=== PATIENT | male | born 1960 | race Caucasian/White ===

== ENCOUNTER → 2019-01-08 | Outpatient (CLI) | payer OTHER ==
[2019-01-08 08:44] LABS: HEMATOCRIT 45.2 % (37.9-51.0); HEMOGLOBIN 15.4 g/dL (13.5-17.0); MEAN CORPUSCULAR HEMOGLOBIN 30.1 pg (27.0-33.4); MEAN CORPUSCULAR HGB CONC 33.9 g/dL (32.0-36.0); MEAN CORPUSCULAR VOLUME 89 fl (80-97); PLATELET COUNT 179 10^3/uL (150-450); RED CELL DISTRIBUTION WIDTH 13.6 % (11.5-14.0); WHITE BLOOD COUNT 9.2 10^3/uL (4.0-10.5)
[2019-01-08 09:18] LABS: ALANINE AMINOTRANSFERASE 25 U/L (21-72); ALBUMIN 3.8 g/dL (3.5-5.0); ALKALINE PHOSPHATASE 78 U/L (38-126); ANION GAP 8 (5-19); ASPARTATE AMINO TRANSFERASE 14 U/L (17-59); BILIRUBIN,DIRECT 0.3 mg/dL (0.0-0.4); BILIRUBIN,TOTAL 0.4 mg/dL (0.2-1.3); BLOOD UREA NITROGEN 21 mg/dL (7-20); CALCIUM 9.6 mg/dL (8.4-10.2); CARBON DIOXIDE 31 mmol/L (22-30); CHLORIDE 102 mmol/L (98-107); CHOLESTEROL 182.32 mg/dL (0-200); GLUCOSE 163 mg/dL (75-110); POTASSIUM 4.9 mmol/L (3.6-5.0); SODIUM 141.3 mmol/L (137-145); TOTAL PROTEIN 6.8 g/dL (6.3-8.2); TRIGLYCERIDES 79 mg/dL (<150)
[2019-01-08 09:30] LABS: DIRECT LDL 118 mg/dL (<100)
== END ==
LOC: OD 07:09
PROVIDERS: ATTEND Physician Assistant
DX: R07.9 Chest pain, unspecified (principal); E78.5 Hyperlipidemia, unspecified; E11.9 Type 2 diabetes mellitus without complications
CPT/HCPCS: 36415; 80048; 80061; 80076; 83735; 84443; 85027

== ENCOUNTER → 2019-01-17 | Outpatient (CLI) | payer OTHER ==
[2019-01-17 13:32] LABS: INTERNATIONAL RATION (INR) 0.94; PARTIAL THROMBOPLASTIN TIME 26.4 SEC (23.5-35.8)
[2019-01-17 13:34] LABS: HEMATOCRIT 47.5 % (37.9-51.0); HEMOGLOBIN 16.1 g/dL (13.5-17.0); MEAN CORPUSCULAR VOLUME 88 fl (80-97); PLATELET COUNT 186 10^3/uL (150-450); RED BLOOD COUNT 5.37 10^6/uL (4.35-5.55); RED CELL DISTRIBUTION WIDTH 13.6 % (11.5-14.0); WHITE BLOOD COUNT 10.5 10^3/uL (4.0-10.5)
[2019-01-17 13:47] LABS: ANION GAP 9 (5-19); BLOOD UREA NITROGEN 20 mg/dL (7-20); CALCIUM 9.9 mg/dL (8.4-10.2); CARBON DIOXIDE 28 mmol/L (22-30); CHLORIDE 101 mmol/L (98-107); GLUCOSE 208 mg/dL (75-110); POTASSIUM 4.5 mmol/L (3.6-5.0)
== END ==
LOC: OD 12:11
PROVIDERS: ATTEND Internal Medicine Cardiovascular Disease
DX: Z01.810 Encounter for preprocedural cardiovascular examination (principal); R07.9 Chest pain, unspecified; R07.89 Other chest pain; Z79.01 Long term (current) use of anticoagulants
CPT/HCPCS: 36415; 80048; 85027; 85610; 85730

== ENCOUNTER → 2019-04-25 | Outpatient (CLI) | payer OTHER ==
[2019-04-26 08:49] LABS: ALKALINE PHOSPHATASE 70 U/L (38-126); ASPARTATE AMINO TRANSFERASE 22 U/L (17-59); BILIRUBIN,DIRECT 0.3 mg/dL (0.0-0.4); BILIRUBIN,TOTAL 0.3 mg/dL (0.2-1.3); CHOLESTEROL 116.13 mg/dL (0-200); TRIGLYCERIDES 66 mg/dL (<150)
[2019-04-26 09:14] LABS: DIRECT LDL 54 mg/dL (<100)
== END ==
LOC: OD 13:29
PROVIDERS: ATTEND Physician Assistant
DX: E78.5 Hyperlipidemia, unspecified (principal); Z79.899 Other long term (current) drug therapy
CPT/HCPCS: 36415; 80061; 80076

== ENCOUNTER → 2019-05-29 | Outpatient (CLI) | payer OTHER ==
--- NOTE | 2019-05-29 16:58 | RADIOLOGY REPORT (SQ) ---
EXAM DESCRIPTION: CAROTID DOPPLER COMPLETED DATE/TIME: 05/29/2019 3:57 pm REASON FOR STUDY: BRUIT R09.89 OTH SYMPTOMS AND SIGNS INVOLVING THE CIRC AND RESP SY COMPARISON: None. TECHNIQUE: Grayscale ultrasound, Doppler velocity and spectra, and color Doppler images acquired of the extra-cranial carotid and vertebral arteries. Images stored on PACS. LIMITATIONS: None. FINDINGS: RIGHT CAROTID CCA Velocities: Normal waveform without high-grade stenosis. Grayscale evaluation demonstrates scatt ered eccentric plaque with minimal luminal stenosis. ICA Velocities Peak systolic 73 cm/s. End diastolic 17 cm/s. Proximal ICA/CCA peak systolic ratio 1.3. Normal spectral waveform without high-grade stenosis. Grayscale evaluation demonstrates eccentric ca lcified plaque with less than 50% luminal stenosis. LEFT CAROTID CCA Velocities: Normal waveform without high-grade stenosis. Grayscale evaluation with demonstrates scattered eccentric plaque with minimal luminal stenosis. ICA Velocities Peak systolic 117 cm/s. End diastolic 31 cm/s. Proximal ICA/CCA peak systolic ratio 1.27. Normal spectral waveform. No high-grade stenosis. Grayscale evaluation demonstrates eccentric shado wing plaque without high-grade stenosis. VERTEBRAL ARTERIES: Antegrade flow. Normal waveforms. SUBCLAVIAN ARTERIES: Not imaged OTHER: No other significant finding. IMPRESSION: Bilateral scattered carotid atherosclerotic plaque with less than 50% stenosis by veloci ty criteria. COMMENT: Quality ID #[id number]: Velocity criteria are extrapolated from the diameter data as defined by t he Society of Radiologists in Ultrasound Consensus Conference. Radiology 2003: 229; 340-346. TECHNICAL DOCUMENTATION: JOB ID: [id number]- All Rights Reserved Reading location - IP/workstation name: [email or web address]
== END ==
LOC: SP 08:23
PROVIDERS: ATTEND Physician Assistant
DX: I65.23 Occlusion and stenosis of bilateral carotid arteries (principal); R09.89 Other specified symptoms and signs involving the circulatory and respiratory systems; Z95.1 Presence of aortocoronary bypass graft
CPT/HCPCS: 93880

== ENCOUNTER → 2019-07-01 | Outpatient (CLI) | payer OTHER ==
[2019-07-02 08:22] LABS: ALBUMIN 4.5 g/dL (3.5-5.0); ALKALINE PHOSPHATASE 78 U/L (38-126); ASPARTATE AMINO TRANSFERASE 28 U/L (17-59); BILIRUBIN,DIRECT 0.2 mg/dL (0.0-0.4); BILIRUBIN,TOTAL 0.4 mg/dL (0.2-1.3); TOTAL PROTEIN 7.5 g/dL (6.3-8.2); TRIGLYCERIDES 107 mg/dL (<150)
[2019-07-02 08:24] LABS: CHOLESTEROL 103.43 mg/dL (0-200)
[2019-07-02 08:34] LABS: DIRECT LDL 39 mg/dL (<100)
== END ==
LOC: OD 14:46
PROVIDERS: ATTEND Physician Assistant
DX: E78.5 Hyperlipidemia, unspecified (principal); Z79.899 Other long term (current) drug therapy
CPT/HCPCS: 36415; 80061; 80076